=== PATIENT | male | born 1950 | race Two or more races ===

== ENCOUNTER 2023-07-19 19:18 | Emergency (ER) | payer OTHER ==
[~2023-07-19] VITALS: Ht 172.7 cm; Wt 83.5 kg
[2023-07-19] MEDS ORDERED: INDERAL LA160 MG (19:59)
[2023-07-19] MEDS ORDERED: COZAAR25 MG (20:00)
== END 2023-07-19 23:01 | disposition home or self-care (01) ==
LOC: ER 19:18
DX: B02.9 Zoster without complications (principal); I10 Essential (primary) hypertension
CPT/HCPCS: 96372; 99282; J1885